=== PATIENT | male | born 1970 | race African-American/Black ===

== ENCOUNTER 2024-12-18 17:13 | Emergency (ER) | payer OTHER ==
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
[2024-12-18] MEDS ORDERED: ONDANSETRON 4 MG/2 ML VIAL ONE (17:59)
[2024-12-18] MEDS ORDERED: MORPHINE 4 MG/ML SYR ONE (17:59)
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
[2024-12-18] MEDS ORDERED: CYCLOBENZAPRINE 10 MG TAB ONE (20:44)
[2024-12-18] MEDS ORDERED: HYDROCODONE/APAP 7.5/325 MG TAB ONE (20:44)
[2024-12-18 21:00] VITALS: O2SAT 100
[2024-12-18 21:03] VITALS: BP 144/88; TEMP 98
== END 2024-12-18 20:46 | disposition home or self-care (01) ==
LOC: ER 17:13
DX: M54.2 Cervicalgia (principal); M25.532 Pain in left wrist; M54.50 Low back pain, unspecified; V49.49XA Driver injured in collision with other motor vehicles in traffic accident, initial encounter
CPT/HCPCS: 70450; 71250; 72125; 74176; 73110; 96375; 96374; 99284; J2405